=== PATIENT | male | born 1940 | race Caucasian/White ===

== ENCOUNTER 2021-06-28 17:59 | Inpatient (IN) ==
[2021-06-28] MEDS ORDERED: IOPAMIDOL 100 ML BOTTLE IV ONE (18:00)
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
[2021-06-28 18:35] LABS: POC Calcium, Ionized 1.17 (1.16-1.32); POC Creatinine 1.1 (0.6-1.2); POC Potassium 3.5 (3.3-5.1)
[2021-06-28 19:02] LABS: Basophils # (Auto) 0.04 K/mcL (0.00-0.30); Basophils % (Auto) 0.3 % (0.0-2.0); Eosinophils # (Auto) 0.03 K/mcL (0.00-0.70); Eosinophils % (Auto) 0.2 % (0.0-7.0); Hematocrit 43.5 % (40.1-51.0); Hemoglobin 14.5 g/dL (13.7-17.5); Lymphocytes # (Auto) 1.31 K/mcL (1.50-4.80); Lymphocytes % (Auto) 8.5 % (15.5-49.0); Mean Cell Volume 92.4 fL (80.0-100.0); Mean Corpuscular HGB Conc 33.3 g/dL (31.0-36.0); Mean Platelet Volume 10.1 fL (7.4-10.4); Monocytes # (Auto) 0.64 K/mcL (0.10-0.90); Monocytes % (Auto) 4.1 % (1.0-12.0); Neutrophils % (Auto) 86.9 % (38.0-78.0); Platelet Count 277 K/mcL (140-440); RBC 4.71 M/mcL (4.63-6.08); Red Cell Distribution Width 12.8 % (11.5-14.5); WBC 15.5 K/mcL (4.5-11.0)
[2021-06-28 19:39] LABS: ALT/SGPT 36 U/L (<40); AST/SGOT 24 U/L (<40); Albumin 4.7 gm/dL (3.2-5.2); Alkaline Phosphatase 48 U/L (39-117); Bilirubin,Direct < 0.2 mg/dL (0-0.3); Bilirubin,Total 0.3 mg/dL (0.1-1.0); Globulin 2.9 gm/dL (2.2-3.7)
[2021-06-28] MEDS ORDERED: MAGNESIUM CITRATE 300 ML ORAL.SOL PO ONE (21:00)
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
[2021-06-28] MEDS ORDERED: IBUPROFEN 600 MG TABLET PO PRN (22:29)
[2021-06-28] MEDS ORDERED: MINERAL OIL 1 DOSE ENEMA PR ONE (22:29)
[2021-06-28] MEDS ORDERED: ONDANSETRON 4 MG/2 ML VIAL IV PRN (22:29)
[2021-06-28] MEDS ORDERED: ACETAMINOPHEN 325 MG TABLET PO PRN (22:29)
[2021-06-28] MEDS: 0.9 % SODIUM CHLORIDE 1,000 ML IV SCH (22:45)
[2021-06-29] MEDS: 0.9 % SODIUM CHLORIDE 10 ML SYRINGE IV SCH ×4 (00:57→22:04)
--- NOTE | 2021-06-29 04:33 | Cat Scan Report ---
CLINICAL INFORMATION: Abdominal pain and distention COMPARISON: Abdomen and pelvic CT 06/10/2017 TECHNIQUE: Following enteric contrast, 80 cc of Isovue-[id number] were injected intravenously, and 60 seconds later, 0.625 mm helical slices were obtained from the mid heart through the subtrochanteric regions. Following reconstruction, 2.5 mm sagittal, coronal and axial reformatted images were processed and reviewed at bone, lung and soft tissue windows. Five minutes later, 0.625 mm helical slices were obtained from the mid heart through the kidneys and viewed at soft tissue windows.The exam was performed using radiation dose optimization techniques including, but not limited to, automated exposure control, adjustment of the mA and/or kV according to patient size and use of iterative reconstruction technique. FINDINGS: The lung bases show bibasilar subsegmental atelectasis.. No effusions. The visualized heart is mildly enlarged with calcification in the aortic valve. There is also scattered calcific plaque in the visualized coronary arteries. Abdominal images show mild fatty change within the liver which is stable. No focal hepatic lesion. A cluster of small stones layer dependently within the gallbladder. The gallbladder and bile ducts are, otherwise, normal: CBD is 5 mm. The pancreas, both adrenal glands and spleen are normal. The abdominal aorta is normal diameter with moderate fibrofatty calcific plaque. Aortic branches contain plaque, but no definite stenoses. There is a 2.9 mm nonobstructing stone in the inferior calyx of the right kidney. Small cysts seen within both kidneys. Pelvic images show urinary bladder is mildly distended. A faint 6 mm stone is present within the left urinary bladder base. Prostate and seminal vesicles are unremarkable. Extremely large amount of stool is present within the distal sigmoid and rectum with moderate stool seen throughout the remainder of the colon. The large bowel, appendix region, small bowel and stomach are otherwise grossly normal. Large (12 cm) right and moderate (9 cm) left inguinal hernia contain only mesenteric fat. Bone windows show only degeneration in the lumbar spine. IMPRESSION: 1. Moderate colonic stool with a very large amount of the distal sigmoid and rectum. 2. Cholelithiasis. Gallbladder and bile ducts are, otherwise, normal. 3. 6 mm stone in the left urinary bladder. 4. 2 mm nonobstructing stone inferior calyx right kidney. 5. Large right and moderate left inguinal hernias containing only mesenteric fat. Interpreted and Authenticated by: Azam Davis 06/29/21
[2021-06-29 06:17] LABS: Hematocrit 41.6 % (40.1-51.0); Hemoglobin 13.8 g/dL (13.7-17.5); Mean Corpuscular HGB Conc 33.2 g/dL (31.0-36.0); Mean Platelet Volume 10.2 fL (7.4-10.4); Platelet Count 268 K/mcL (140-440); RBC 4.57 M/mcL (4.63-6.08); Red Cell Distribution Width 12.9 % (11.5-14.5); WBC 12.6 K/mcL (4.5-11.0)
[2021-06-29 06:37] LABS: ALT/SGPT 30 U/L (<40); AST/SGOT 23 U/L (<40); Albumin 4.3 gm/dL (3.2-5.2); Albumin/Globulin Ratio 1.5 (1.0-2.3); Alkaline Phosphatase 44 U/L (39-117); Bilirubin,Direct < 0.2 mg/dL (0-0.3); Bilirubin,Total 0.4 mg/dL (0.1-1.0); Blood Urea Nitrogen 18 mg/dL (8-23); Carbon Dioxide 28 mmol/L (22-30); Chloride 97 mmol/L (96-108); Globulin 2.8 gm/dL (2.2-3.7); Glomerular Filtration Rate 71; Glucose 136 mg/dL (70-105); Lactate Dehydrogenase 152 U/L (135-225); Phosphorous 2.9 mg/dL (2.5-4.5); Triglycerides 251 mg/dL (<150); Uric Acid 6.8 mg/dL (2.5-8.0)
[2021-06-29 06:51] LABS: Band Neutrophils % 1 % (0-10); Lymphocytes % 21 % (15-49); Monocytes % (Manual) 9 % (1-12); Platelet Estimate NORMAL (Normal); RBC Morphology NORMAL (Normal); Segmented Neutrophils % 69 % (38-78)
[2021-06-29] MEDS ORDERED: POTASSIUM CHLORIDE 40 MEQ in DEXTROSE 5% IN WATER 500 ML IV ONE (08:00)
[2021-06-29] MEDS: SENNOSIDES 1 TABLET PO SCH ×2 (08:45→22:05)
[2021-06-29] MEDS: 0.9 % SODIUM CHLORIDE 1,000 ML IV SCH (08:46)
[2021-06-29] MEDS: LACTULOSE 20 GM/30 ML ORAL.SOL PO SCH ×4 (08:46→22:05)
--- NOTE | 2021-06-29 14:14 | XRay Report ---
CLINICAL INFORMATION: FOR F/U OF ILEUS COMPARISON: None. FINDINGS: Mild symmetric dilatation of the stomach small and large bowel with scattered air-fluid levels in the colon compatible with ileus appreciated. No free air, soft tissue mass or pathologic calcification. IMPRESSION: Moderate ileus with rectal stool impaction. Interpreted and Authenticated by: Azam Davis 06/29/21
[2021-06-29] MEDS: POLYETHYLENE GLYCOL 3350 17 GM PACKET PO SCH ×3 (15:16→23:56)
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
[2021-06-30] MEDS: 0.9 % SODIUM CHLORIDE 10 ML SYRINGE IV SCH ×2 (05:26→13:20)
[2021-06-30] MEDS: POLYETHYLENE GLYCOL 3350 17 GM PACKET PO SCH ×5 (05:26→20:18)
[2021-06-30 06:24] LABS: ALT/SGPT 29 U/L (<40); AST/SGOT 26 U/L (<40); Albumin 3.9 gm/dL (3.2-5.2); Albumin/Globulin Ratio 1.4 (1.0-2.3); Alkaline Phosphatase 39 U/L (39-117); Bilirubin,Direct < 0.2 mg/dL (0-0.3); Bilirubin,Total 0.4 mg/dL (0.1-1.0); Blood Urea Nitrogen 12 mg/dL (8-23); Calcium 9.6 mg/dL (8.6-10.4); Carbon Dioxide 28 mmol/L (22-30); Chloride 101 mmol/L (96-108); Globulin 2.7 gm/dL (2.2-3.7); Glomerular Filtration Rate 71; Glucose 101 mg/dL (70-105); Lactate Dehydrogenase 145 U/L (135-225); Phosphorous 2.7 mg/dL (2.5-4.5); Triglycerides 252 mg/dL (<150); Uric Acid 6.3 mg/dL (2.5-8.0)
[2021-06-30] MEDS: SENNOSIDES 1 TABLET PO SCH (09:16)
[2021-06-30] MEDS: LACTULOSE 20 GM/30 ML ORAL.SOL PO SCH ×4 (09:16→20:20)
--- NOTE | 2021-06-30 10:16 | Internal Med Progress Note ---
SUBJECTIVE Subjective Patient information: Note initiated : 06/30/21 at 10:13 am Service Date, if different from initiated Date: [] Patient: Bowen Snell 81 y/o M admitted on 06/28/21 for constipation. Chief Complaint: [] Interval history: Mr. Snell is a 81 year old male with a history of hypertension, hyperlipidemia, CAD s/p stents, normal pressure hydrocephalus, Parkinsonism, dementia, obesity, obstructive sleep apnea presented to the emergency department for constipation and was found to have fecal impaction. The ED doctor ordered a CT abdomen pelvis which reportedly showed large volume of stool in the rectal vault. There was an effort to disimpact the patient in the ED but only partially successful. Hospital medicine was consulted for admission. 06/30 Patient is pleasantly confused, vital stable. Abdominal x-ray findings consistent with ileus, admitted the patient to inpatient status. Discussed CODE STATUS with the patient's , she will review prior documentations and talk to other family members. General surgery following. Physical exam Head: Atraumatic, normal inspection. Eyes: normal appearance, no scleral icterus. Neck: full ROM Respiratory: no respiratory distress. Cardiovascular: normal rate and rhythm, S1, S2. GI/Abdominal: Distended, soft, mild diffuse tenderness to palpation, no guarding. Extremities: full range of motion, nontender. Neurological: CN II-XII intact, intact motor, intact sensation. Psychiatric: Impaired cognition Skin: warm, normal color Constitutional Vitals: Vital Signs Temp Pulse Resp BP Pulse Ox 98.3 F 60 16 118/66 92 06/30/21 07:13 06/30/21 04:00 06/30/21 07:13 06/30/21 07:13 06/30/21 07:13 Period Temp Pulse Resp BP Sys/Turner Pulse Ox Last 24 Hr 97.9 F-98.8 F 53-60 16-24 102-150/50-72 91-94 Intake and Output 06/29/21 06/30/21 06/30/21 21:59 05:59 13:59 Intake Total 795 Output Total 1 500 Balance 794 -500 Weight 101.423 kg Intake & Output: Intake & Output 06/29/21 06/30/21 06/30/21 21:59 05:59 13:59 Intake Total 795 Output Total 1 500 Balance 794 -500 Weight 101.423 kg Intake: IV 520 Potassium Chloride 40 Meq In 520 Dextrose 5% in Water 500 ml @ 130 mls/hr IV ONCE ONE Rx#: [id number] Oral 275 Output: Void Amount 500 # of times incontinent of urine 1 Other: Urine Appearance Clear Urine Color Pale Urine Odor Normal Stool Size Moderate Smear Stool Color Brown Brown Yellow Stool Consistency Soft Soft Liquid # Voids 1 # Bowel Movements 1 # of times incontinent of 1 Bowels OBJ DATA Labs CBC & Chem 7: 06/29/21 05:10 06/30/21 05:06 Labs: Abnormal Lab Results 06/30/21 06/29/21 06/29/21 05:06 05:10 05:10 WBC 12.6 H RBC 4.57 L Neut % (Auto) Lymph % (Auto) Lymph # (Auto) Absolute Neutrophils Potassium 3.0 L POC BUN Glucose 136 H POC Glucose Magnesium 2.7 H Triglycerides 252 H 251 H 06/28/21 06/28/21 18:32 18:26 WBC 15.5 H RBC Neut % (Auto) 86.9 H Lymph % (Auto) 8.5 L Lymph # (Auto) 1.31 L Absolute Neutrophils 13.43 H Potassium POC BUN 23 H Glucose POC Glucose 137 H Magnesium Triglycerides Meds: Medications Acetaminophen (Acetaminophen 325 Mg Tablet) 650 mg PO Q6HP PRN; Protocol PRN Reason: Per Pain Protocol/Fever > 101 Ibuprofen (Ibuprofen 600 Mg Tablet) 600 mg PO QIDP PRN; Protocol PRN Reason: Per Pain Protocol/Fever > 101 Lactulose (Lactulose 20 Gm/30 Ml Oral.Gabriela) 20 gm PO QID [facility] Last Admin: 06/30/21 09:16 Dose: 20 gm Documented by: Ondansetron HCl (Ondansetron 4 Mg/2 Ml Vial) 4 mg IV Q6HP PRN PRN Reason: Nausea And Vomiting Polyethylene Glycol (Polyethylene Glycol 3350 17 Gm Packet) 17 gm PO Q4H [facility] Stop: 06/30/21 12:01 Last Admin: 06/30/21 09:16 Dose: 17 gm Documented by: Senna (Sennosides 1 Tablet) 2 tab PO BID [facility] Last Admin: 06/30/21 09:16 Dose: 2 tab Documented by: Sodium Chloride (0.9 % Sodium Chloride 10 Ml Syringe) 10 ml IV Q8 [facility] Last Admin: 06/30/21 05:26 Dose: 10 ml Documented by: A/P Narrative A/P Narrative: Assessment: 81 year old male with a history of hypertension, hyperlipidemia, CAD s/p stents, normal pressure hydrocephalus, Parkinsonism, dementia, obesity, obstructive sleep apnea admitted for fecal impaction. #Ileus #Fecal impaction #Leukocytosis, stress induced #Coronary artery disease, stable #Hypertension #Hyperlipidemia #Normal pressure hydrocephalus #Parkinsonism #Dementia #Obstructive sleep apnea #Obesity Plan -Admit to inpatient. -Nonopioid analgesics. -IV fluid -Delirium precautions, avoid psychotropic medications. -Follow up pending x-ray abdomen. -Monitor CBC and chemistry panel. -General surgery following. -Home medication reconciliation, resume important meds. -CPAP at bedtime. -PT consult. -Diet per surgery. -DVT prophylaxis: Lovenox -Disposition: TBD Time Spent With Patient Time: Total time spent is greater than 50% in coordination of care (as documented) at patient's floor/unit and/or counseling patient: QUALITY VTE Deep Vein Thrombosis/Pulmonary Embolism Present on Admission: No
--- OUTSIDE RECORDS SUMMARY | 2021-06-30 10:17 | External Medical Summary | Continuity of Care Document ---
:1940 Author Organization [facility] Care Team Providers Name Role Phone DOD-VA Unavailable Unavailable Vital Signs Combined list of inpatient and outpatient Vital Signs from Department of Defense and Veterans Affairs, ranging from 12 months to all on record, depending upon the facility. Vital Sign Value Date Comments Source Ambulatory Phar ness Encounters Combined list of: 1) Encounters from Department of Veterans Affairs facilities going back up to the last 18 months, not all VA inpatient encounters are included; 2) Encounters from the Department of Defense facilities going back up to 280 months. Location Location Encounter Encounter Reason Attending ADM DC Stat us Disposition Source Details Type Number For Provider Date Date Visit History 03/09 03/09 One or More [facility] Facilit ies PST Outpatient [id number] 03/19 LINDSAY RICKEY Encounter [id number] Avel ROMAN [facility] Outpatient [id number] 04/09 LINDSAY RICKEY Encounter [id number] Avel ROMAN [facility] Outpatient [id number] 04/09 LINDSAY RICKEY Encounter [id number] Avel ROMAN [facility] Lifetime [id number] 03/18 Ambula t Pharmacy 943 /2021 ory Pharmac y Outpatient [id number] 04/30 LINDSAY RICKEY Encounter [id number] /2022 Avel ROMAN [facility] [id number] 04/30 04/30 687 Care 0975 /2021 [place] Outpatient avel morgan [facility] Outpatient [id number] 05/17 LINDSAY RICKEY Encounter [id number] Avel ROMAN [facility] [id number] 05/24 05/24 687 Care 9073 /2021 [place] Outpatient avel Roman malik arellano [facility] [id number] 06/03 06/03 Discharge 68 7 Care /2021 Disposition: [place] Outpatient Home or Self Wa lla Care Facilit y [facility] Procedures Combined list of: 1) Procedures from Department of Veterans Affairs facilities going backup to the last 18 months, not all [place] non-surgical procedures are included; 2) All procedures from the [facility] facilities. Procedure Procedure Type Code Date Perfomer Comments Sourc e No data available [facility] for this section Assessment and Plan Combined list of future care activities from Department of Defense and Veterans [facility] facilities (e.g., assessment and plan notes, appointments, orders, and referrals). Additional future care activities may be listed in the Plan of Care section. Result Assessment and Plan Date Source Assessment and Plan No data available for this 06/30/2021 A [facility] Pharmacy section Plan of Care List of future care activities from Department of Veterans Affairs facilities. Additional future care activities may be listed in the Assessment and Plan section. Date/Time Care Activity Care Activity Detail Facility 05/24/2021 Consult Order COMMUNITY CARE-PRIMARY CARE LINDSAY TRAN [facility] Cons Pulp Roller's Choice Functional Status Combined list of recent functional and cognitive assessments recorded at Department of Defense and Veterans Affairs (VA).VA Functional [place] Measurement (FIM) Scale: 1 = Total Assistance (Subject = 0% +), 2 = Maximal Assistance (Subject = 25% +), 3 = Moderate Assistance (Subject = 50% +), 4 = Mi nimal Assistance (Subject = 75% +), 5 = Supervision, 6 = Modified [place] (Device), 7 = Complete [place] (Timely, Safely). Assessment Source Assessment Type Assessment Assessment Assessmen t Date/Time Skill Score Details No data available for this section
--- OUTSIDE RECORDS SUMMARY | 2021-06-30 10:18 | External Medical Summary | Encounter Summary ---
:1940 Author Organization [facility] Address [address] [place] [address] Support Name Relationship Address Phone MAIKOL Unavailable [address] [phone] [place] [address] MAIKOL Unavailable [address] [place] [address] Insurance Providers: All historical and current Section Date Range: From patient's date of to the date document was created.This section includes the names of all active insurance providers for the patient. Insurance Type of Plan Start of End of Group Member Insurance Policy P atient's Provider Coverage Name Policy Policy Number ID Provider's Duran's Relationship Coverage Coverage Telephone Name to Policy Number Duran AARP MEDIGAP PLANF Mar 09, PLANF [id number] [phone] MAIKOL, PATIENT PLAN F 2013 [id number] [place] MED[place] MEDICARE PART Apr 09, PART A [id number] MAIKOL, PATIENT (WNR) (M) A [id number] [place] MEDICARE MEDICARE PART Apr 09, PART B [id number] MAIKOL, PATIENT (WNR) (M) B [id number] [place] MEDICARE PART Apr 09, PART A [id number] MAIKOL, PATIENT (WNR) (M) A [id number] [place] MEDICARE PART Apr 09, PART B [id number] MAIKOL, PATIENT (WNR) (M) B [id number] [place] Selected Encounter This section includes the information on record at [place] for the Encounter. Date/Time Encounter Type Encounter Description Reason Provider Source Apr 30, 2021 11:56 Outpatient Encounter TELEPHONE/ANCILLARY AM I[facility] Encounter Template Text not used by [place] Plan of Treatment: Future Appointments (+ 6 months) and Future Tests (+/- 45 days) The Plan of Treatment section includes future care activities for the patient from all [place] treatmentfacilities. This section includes future appointments and future orders which are active, pending orscheduled.Future Appointments This section includes appointments that were scheduled to occur 6 months from the date of the Encounter, up to a maximum of 20 appointments. The data comes from all [place] treatment facilities. Appointment Date/Time Appointment Type Appointment Facili ty Name Jun 03, 2021 02:30 PM AMBULATORY - NONE [facility] Active, Pending, and Scheduled Orders This section includes a listing of several types of active, pending, and scheduled orders, including clinic medications orders, diagnostic test orders, procedure orders and consult orders; where the start date of the order is 45 days before the date of the Encounter or 45 days after the date of the Encounter. The data comes from all [place] treatment facilities. Test Date/Time Test Type Test Details Facility Name Apr 30, 2021 12:23 PM Consult Order COMMUNITY CARE-AUDIOLOGY Roxana ORTEGA [facility]ge Worker's Choice [facility] May 24, 2021 01:56 PM Consult Order COMMUNITY CARE-PRIMARY MONICA ORTEGA [facility] [employer] Workers [facility] Choice Encounter Notes: All associated encounter notes This section contains the clinical notes associated to the Encounter. Date/Time Encounter Note(s) Provider Source Apr 30, 2021 12:24 PM LETTERS: MINDY LOMELI LOCAL TITLE: COMMUNITY CARE-REQUEST FOR SERVICE S (RFS) LETTER [facility] STANDARD TITLE: LETTERS DATE OF NOTE: APR 30, 2021@12:24 ENTRY DATE: APR 30, 2021@12:24:51 AUTHOR: MINDY LOMELI EXP COSIGNER: URGENCY: STATUS: COMPLETED [facility] REJI GALLARDO [address] [place] [id number] P: [id number] F: [phone] Dear Provider, [place] Information: Patient Name: OC LASSITER Date of : Apr The [facility], Office of Car e in the Community, has received your request for continuation of care. Upon review, the following determination has been made: Service has been APPROVED as of Apr. Details:A new community care referral has been s ubmitted for the requested care and will be processed through [place] [facility]. A NEW AUTHORIZATION PACKET WILL BE FAXED SEPARAT E FROM THIS LETTER. Should you have questions, please contact me at the number below. For questions on SEOCs/authorization paperwork, elba bruce contact . Sincerely, Mindy Administrative Medicine Service, RN Coordinator [phone], Ext [phone] Hedy Ortega [facility] Apr 30, 2021 11:56 AM LETTERS: MINDY LOMELI LOCAL TITLE: COMMUNITY CARE-REQUEST FOR SERVICE S (RFS) LETTER [facility] STANDARD TITLE: LETTERS DATE OF NOTE: APR 30, 2021@11:56 ENTRY DATE: APR 30, 2021@11:56:37 AUTHOR: MINDY LOMELI EXP COSIGNER: URGENCY: STATUS: COMPLETED s s s s s Dear Provider, [place] Information: Patient Name: OC LASSITER Date of : Apr The s has received the request from you for serv ices that were not originally authorized in the [facility] Administration for th is [place]. Upon review, the following determination has been made: Service has been approved. (Authorization #) Should you have questions, please contact us at s to speak with a patient financial services consultant. As a reminder, if applic able, return medical records within 30 days for routine services. Sincerely,
--- OUTSIDE RECORDS SUMMARY | 2021-06-30 10:18 | External Medical Summary | Encounter Summary ---
:1940 Author Organization [facility] Address [address] [place] [address] Support Name Relationship Address Phone MAIKOL Unavailable [address] [phone] [place] [address] MAIKOL Unavailable [address] [place] [address] Insurance Providers: All historical and current Section [...] Duran AARP MEDIGAP PLANF Mar 09, PLANF [id number] [phone] MAIKOL, PATIENT PLAN F 2013 [id number] [place] MEDICARE PART Apr 09, PART A [id number] MAIKOL, PATIENT (WNR) (M) A [id number] [place] MEDICARE PART Apr 09, PART B [id number] MAIKOL, PATIENT (WNR) (M) B [id number] [place]IC[place] PART Apr 09, PART A [id number] [phone] MAIKOL, PATIENT (WNR) (M) A [id number] [place] MEDICARE PART Apr 09, PART B [id number] [phone] MAIKOL, PATIENT (WNR) (M) B [id number] [place] Selected Encounter This section includes the information on record at [place] for the Encounter. Date/Time Encounter Type Encounter Description Reason Provider Source May 17, 2021 04:13 Outpatient Encounter COMMUNITY CARE PM CONSULT [facility] Encounter Template Text not used by [facility] Plan of Treatment: Future Appointments (+ 6 months) and Future Tests (+/- 45 days) The Plan of Treatment section includes future care activities for the patient from all [place] treatmentfacilities. This section includes future appointments and future orders which are active, pending orscheduled.Future Appointments This section includes appointments that were scheduled to occur 6 months from the date of the Encounter, up to a maximum of 20 appointments. The data comes from all [place] treatment facilities. Appointment Date/Time Appointment Type Appointment Facili ty Name Jun 03, 2021 02:30 PM AMBULATORY - NONE [facility] Active, Pending, and Scheduled Orders This section includes a listing of several types of active, pending, and scheduled orders, including clinic medications orders, diagnostic test orders, procedure orders and consult orders; where the start date of the order is 45 days before the date of the Encounter or 45 days after the date of the Encounter. The data comes from all [facility]. Test Date/Time Test Type Test Details Facility Name Apr 30, 2021 12:23 PM Consult Order COMMUNITY CARE-AUDIOLOGY Roxana TRAN [facility] Manager Unit's Choice [facility] May 24, 2021 01:56 PM Consult Order COMMUNITY CARE-PRIMARY [facility] Manager Units [facility] Choice Encounter Notes: All associated encounter notes This section contains the clinical notes associated to the Encounter. Date/Time Encounter Note(s) Provider Source May 17, 2021 04:13 PM ADMINISTRATIVE NOTE: FEMI MAYEN LOCAL TITLE: ADMINISTRATIVE NOTE [facility] STANDARD TITLE: ADMINISTRATIVE NOTE DATE OF NOTE: MAY 17, 2021@16:13 ENTRY DATE: MAY 17, 2021@16:13:47 AUTHOR: FEMI MAYEN EXP COSIGNER: URGENCY: STATUS: COMPLETED ADMINISTRATIVE NOTE Has ADDENDA Please contact and schedule per policy zaki TIWARI. Please contact at cell phone. /migdalia/ FEMI MAYEN [facility] ROUTEMAN Signed: 05/17/2021 16:14 Receipt Acknowledged By: 05/20/2021 17:20 /es/ Ethan WYNN [employer]ET METAL INSTALLER 05/21/2021 12:42 /es/ LY RODRIGUEZ ADVANCED SHEET METAL INSTALLER 05/21/2021 07:40 /es/ NOEL COLEMAN MSA 05/20/2021 ADDENDUM STATUS: COMPLETED Please contact for new patient scheduling. /es/ Ethan WYNN ADVANCED SHEET METAL INSTALLER Signed: 05/20/2021 17:19 Receipt Acknowledged By: 05/23/2021 17:48 /migdalia/ MEJIA SINGH 05/23/2021 ADDENDUM STATUS: COMPLETED would like [facility] to stay with current pro vider for services. /migdalia/ MEJIA SINGH Signed: 05/23/2021 17:50 Receipt Acknowledged By: 05/24/2021 12:52 /migdalia/ BERNICE MURRAY REFERRAL COORDINATION TEAM RN 05/24/2021 ADDENDUM STATUS: COMPLETED Call to r/t primary care in the communit y referral request. No answer, left discreet message to to return call to [phone] ext. [phone]. /migdalia/ BERNICE MURRAY REFERRAL COORDINATION TEAM RN Signed: 05/24/2021 12:54 05/24/2021 ADDENDUM STATUS: COMPLETED Call to r/t [facility] primary care referral r equest. Length of call: 15 min Verified by Full Name and . Verified demograp hics. Discussed with request for Primary Care Consult in community. [place] would like referral due to: carlos chance has established care in community and complex medical conditions. Discus sed Primary [facility] process and answered all questions. Verbalized agreement of process. [place] has scheduled appoin tment: Annual appt in January, routine scheduling. New [facility] primary care consult ordered and approved. /migdalia/ BERNICE MURRAY REFERRAL COORDINATION TEAM RN Signed: 05/24/2021 14:11
[2021-06-30] MEDS: LACTATED RINGERS 1,000 ML IV SCH (11:29)
--- NOTE | 2021-06-30 13:35 | General Surgery Progress Note ---
SUBJECTIVE Subjective Patient information: Note initiated : 06/30/21 at 1:34 pm Service Date, if different from initiated Date: [] Patient: Bowen Snell 81 y/o M admitted on 06/28/21 for constipation. Chief Complaint: [] Principal diagnosis: Severe constipation with fecal impaction Interval history: Patient continues to improve. He has had at least 7 bowel movements according to the document on record. His discomfort is significantly improved. Electrolytes are normal. Constitutional Vitals: Vital Signs Temp Pulse Resp BP Pulse Ox 97.6 F 57 L 16 130/81 93 06/30/21 11:11 06/30/21 11:11 06/30/21 11:11 06/30/21 11:11 06/30/21 11:11 Period Temp Pulse Resp BP Sys/Turner Pulse Ox Last 24 Hr 97.6 F-98.8 F 53-60 16-24 102-130/50-81 91-94 Intake and Output 06/29/21 06/30/21 06/30/21 21:59 05:59 13:59 Intake Total 795 240 Output Total 1 500 2 Balance 794 -500 238 Weight 223 lb 9.6 oz Intake & Output: Intake & Output 06/29/21 06/30/21 06/30/21 21:59 05:59 13:59 Intake Total 795 240 Output Total 1 500 2 Balance 794 -500 238 Weight 223 lb 9.6 oz Intake: IV 520 Potassium Chloride 40 Meq In 520 Dextrose 5% in Water 500 ml @ 130 mls/hr IV ONCE ONE Rx#: [id number] Oral 275 GI Tube Flush 240 Output: Void Amount 500 # of times incontinent of urine 1 2 Other: Urine Appearance Clear Urine Color Pale Urine Odor Normal Stool Size Moderate Smear Stool Color Brown Brown Yellow Stool Consistency Soft Liquid # Voids 1 # Bowel Movements 1 # of times incontinent of 1 3 Bowels Eye Eye exam: Present EOMI and PERRL Pupils: Present PERRL ENT ENT exam: Present normal exam and normal oropharynx Neck Neck exam: Present full ROM and normal inspection; Absent lymphadenopathy Respiratory Respiratory exam: Present normal respiratory exam and CTAB Cardiovascular Cardiovascular exam: Present normal rate and rhythm, RRR, +S1 and +S2; Absent JVD GI/Abdominal GI/Abdominal exam: Present normal bowel sounds and distended (Distention is significantly improved); Absent soft or mass Extremities Exam Extremities exam: Present full ROM and neurovascular intact; Absent tenderness Neurological Exam Neurological exam: Present alert, oriented X3 and reflexes normal; Absent motor sensory deficit Psychiatric Psychiatric exam: Present anxious and normal affect A/P Assessment and plan (1) Fecal impaction: Status: Acute (2) Hypertension: Status: Chronic Comment: Well-controlled on lisinopril 40 mg daily and hydrochlorothiazide 25 mg daily. Qualifiers: Hypertension type: essential hypertension Qualified Code(s): I10 - Essential (primary) hypertension (3) Obstructive sleep apnea: Status: Chronic Comment: On CPAP, but machine is giving an error message that the motor is breaking down We will send order for new CPAP machine (4) Hypertension, essential: Status: Chronic Comment: Stable at present (5) CAD (coronary artery disease): Status: Chronic Comment: Continue baby aspirin every other day. Discontinuing statin after discussion of risks and benefits in the setting of progressive cognitive impairment. Qualifiers: Coronary Disease-Associated Artery/Lesion type: [place] artery [place] vs. transplanted heart: [place] heart Associated angina: without angina Qualified Code(s): I25.10 - Atherosclerotic heart disease of [place] coronary artery without angina pectoris Plan Patient is doing well. MiraLAX will be continued tonight and he will get enemas till clear Colonoscopy in the morning Time Spent With Patient Time: Total time spent is greater than 50% in coordination of care (as documented) at patient's floor/unit and/or counseling patient:
--- NOTE | 2021-06-30 14:01 | XRay Report ---
CLINICAL INFORMATION: FOR F/U OF ILEUS COMPARISON: 06/29/2021 plain film and abdomen and pelvic CT 06/28/2021 FINDINGS: The colon is now mildly dilated with air-fluid levels. There is probable persistent impacted stool within the rectum. Stomach and small bowel remain normal. No free air. IMPRESSION: Partial distal colonic obstruction ostensibly due to impacted rectal stool. Interpreted and Authenticated by: Azam Davis 06/30/21
[2021-06-30] MEDS ORDERED: POLYETHYLENE GLYCOL 3350 17 GM PACKET PO SCH ×2 (16:00)
[2021-07-01] MEDS: LACTATED RINGERS 1,000 ML IV SCH (00:12)
[2021-07-01] MEDS: SENNOSIDES 1 TABLET PO SCH ×2 (00:12→08:53)
[2021-07-01] MEDS: POLYETHYLENE GLYCOL 3350 17 GM PACKET PO SCH ×2 (00:12→04:36)
[2021-07-01] MEDS: 0.9 % SODIUM CHLORIDE 10 ML SYRINGE IV SCH ×2 (00:12→05:59)
[2021-07-01 06:00] LABS: Basophils # (Auto) 0.05 K/mcL (0.00-0.30); Basophils % (Auto) 0.5 % (0.0-2.0); Eosinophils # (Auto) 0.24 K/mcL (0.00-0.70); Eosinophils % (Auto) 2.2 % (0.0-7.0); Hematocrit 39.9 % (40.1-51.0); Hemoglobin 13.3 g/dL (13.7-17.5); Lymphocytes # (Auto) 2.01 K/mcL (1.50-4.80); Lymphocytes % (Auto) 18.5 % (15.5-49.0); Mean Cell Volume 92.1 fL (80.0-100.0); Mean Corpuscular HGB Conc 33.3 g/dL (31.0-36.0); Monocytes # (Auto) 0.85 K/mcL (0.10-0.90); Monocytes % (Auto) 7.8 % (1.0-12.0); Platelet Count 229 K/mcL (140-440); RBC 4.33 M/mcL (4.63-6.08); Red Cell Distribution Width 12.6 % (11.5-14.5); WBC 10.8 K/mcL (4.5-11.0)
[2021-07-01 06:42] LABS: ALT/SGPT 30 U/L (<40); AST/SGOT 24 U/L (<40); Albumin 3.9 gm/dL (3.2-5.2); Albumin/Globulin Ratio 1.5 (1.0-2.3); Alkaline Phosphatase 40 U/L (39-117); Bilirubin,Direct < 0.2 mg/dL (0-0.3); Bilirubin,Total 0.4 mg/dL (0.1-1.0); Blood Urea Nitrogen 11 mg/dL (8-23); Calcium 9.4 mg/dL (8.6-10.4); Carbon Dioxide 28 mmol/L (22-30); Chloride 100 mmol/L (96-108); Globulin 2.6 gm/dL (2.2-3.7); Glomerular Filtration Rate 80; Glucose 103 mg/dL (70-105); Lactate Dehydrogenase 155 U/L (135-225); Phosphorous 2.6 mg/dL (2.5-4.5); Triglycerides 254 mg/dL (<150); Uric Acid 6.1 mg/dL (2.5-8.0)
[2021-07-01] MEDS ORDERED: PROPOFOL 200 MG/20 ML VIAL IV ONE (07:30)
--- NOTE | 2021-07-01 08:01 | Brief Operative Note ---
Brief Operative Note Date of procedure: 07/01/21 Pre-op diagnosis: Severe constipation with fecal impaction Post-op diagnosis: other (Severe constipation with fecal impaction; diverticulosis) Procedure: Colonoscopy to cecum Grafts/Implants: No Anesthesia: MAC Findings: Patient had left-sided diverticulosis but his colon was otherwise normal extending to the cecum; there was no left-sided areas of stenosis or stricture Complications: none Surgeon: Bowen Hilario Specimens Removed/Pathology: none sent Condition: stable Disposition: floor
[2021-07-01] MEDS: LACTULOSE 20 GM/30 ML ORAL.SOL PO SCH (08:53)
--- NOTE | 2021-07-01 09:03 | Discharge Summary ---
Discharge Provider Provider Patient information: Note initiated : 07/01/21 at 9:03 am Service Date, if different from initiated Date: [] Patient: Bowen Snell 81 y/o M admitted on 06/28/21 for constipation. Chief Complaint: [] Date of admission: 06/28/21 22:26 Discharge date: 07/01/21 Primary care physician: Azam Vazquez DO Consults: 06/28/21 Consult to Physician [CONS] Stat Comment: Consulting Provider: Pierre Cotter Reason For Exam: Physician to Consult Consult to Physician [CONS] Stat Comment: Consulting Provider: Bowen Hilario Reason For Exam: Physician to Consult Discharge Meds Discharge Medications Home Medications aspirin 81 mg tablet,delayed release (Adult Low Dose Aspirin) 81 mg PO HS tab 06/08/17 [History Confirmed 06/28/21 Last Taken Unknown] CPAP machine #1 ea 05/08/20 [Rx Confirmed 06/28/21 Last Taken Unknown] memantine 10 mg tablet 10 mg PO BID #180 tab 02/12/21 [Rx Confirmed 06/28/21 Last Taken Unknown] lisinopril 40 mg tablet 40 mg PO DAILY #90 tab 04/11/21 [Rx Confirmed 06/28/21 Last Taken Unknown] potassium chloride 10 mEq tablet,extended release 10 meq PO DAILY #90 tab 04/11/21 [Rx Confirmed 06/28/21 Last Taken Unknown] sertraline 50 mg tablet 50 mg PO QDAY #90 tab 04/11/21 [Rx Confirmed 06/28/21 Last Taken Unknown] COURSE Hospital Course Hospital course: Mr. Snell is a 81 year old male with a history of hypertension, hyperlipidemia, CAD s/p stents, normal pressure hydrocephalus, Parkinsonism, dementia, obesity, obstructive sleep apnea presented to the emergency department for constipation and was found to have fecal impaction. The ED doctor ordered a CT abdomen pelvis which reportedly showed large volume of stool in the rectal vault. There was an effort to disimpact the patient in the ED but only partially successful. Hospital medicine was consulted for admission. 06/30 Patient is pleasantly confused, vital stable. Abdominal x-ray impression by radiology is partial distal colonic obstruction ostensibly due to impacted rectal stool. Given likely stay greater than 2 midnights the patient was admitted to inpatient status. Potassium replacement for hypokalemia. Discussed CODE STATUS with the patient's , she will review prior documentations and talk to other family members. General surgery following. 07/01 GI performed a colonoscopy which showed left-sided diverticulosis but colon was otherwise normal extending to the cecum. General surgery okay with discharge, the patient was discharged to home. Held hydrochlorothiazide discharge as the patient was hypokalemic and hydrochlorothiazide can lead to volume depletion which could lead to increased fluid absorption from stool and resultant constipation. Resumed home lisinopril and other home medications at discharge. Discussed POLST form and provided documentation to the patient and his for review, these can be discussed further with primary care provider if there are questions. Follow-up with primary care provider after discharge. Physical exam Head: Atraumatic, normal inspection. Eyes: normal appearance, no scleral icterus. Neck: full ROM Respiratory: no respiratory distress. Cardiovascular: normal rate and rhythm, S1, S2. GI/Abdominal: soft, mild diffuse tenderness to palpation, no guarding. Extremities: full range of motion, nontender. Neurological: CN II-XII intact, intact motor, intact sensation. Psychiatric: Impaired cognition Skin: warm, normal color Discharge diagnosis: Rectal stool impaction Time Spent with Patient Time attestation: Total time spent providing and/or coordinating discharge services: EXAM Constitutional Vitals: Temp Pulse Resp BP Pulse Ox 98.1 F 52 L 16 132/78 94 07/01/21 08:43 07/01/21 08:43 07/01/21 08:43 07/01/21 08:43 07/01/21 08:43 Discharge Data Data Completed and Pending Labs on day of discharge: Labs from last 24 hours 07/01/21 07/01/21 05:24 05:24 WBC 10.8 RBC 4.33 L Hgb 13.3 L Hct 39.9 L MCV 92.1 MCH 30.7 MCHC 33.3 RDW 12.6 Plt Count 229 MPV 10.0 Neut % (Auto) 71.0 Lymph % (Auto) 18.5 [place] % (Auto) 7.8 Eos % (Auto) 2.2 Baso % (Auto) 0.5 Lymph # (Auto) 2.01 [place] # (Auto) 0.85 Eos # (Auto) 0.24 Baso # (Auto) 0.05 Absolute Neutrophils 7.69 Sodium 137 Potassium 3.5 Chloride 100 Carbon Dioxide 28 Anion Gap 9.0 BUN 11 Creatinine 0.9 GFR Calculation 80 Glucose 103 Uric Acid 6.1 Calcium 9.4 Phosphorus 2.6 Magnesium 2.2 Total Bilirubin 0.4 Direct Bilirubin < 0.2 GGT 32 AST 24 ALT 30 Alkaline Phosphatase 40 Lactate Dehydrogenase 155 Total Protein 6.5 Albumin 3.9 Globulin 2.6 Albumin/Globulin Ratio 1.5 Triglycerides 254 H Discharge Plan Patient/Caregiver Discharge Instructions Activity: increase activity as tolerated Diet: Regular Diet Instructions: Constipation (DC), Colonoscopy (DC) Activity Restrictions/Additional Instructions: Resume home diet as tolerated. Increase activity as tolerated. Return to ER for fever, chills, uncontrolled pain, inability to urinate or have a bowel movement, nausea and/or vomiting, swelling, redness, signs of infection, shortness of breath, chest pain, return of symptoms, or other acute symptom. This discharge packet is provided to you to help keep you informed about your care. We want to ensure you get everything you need when you go home. You will also be receiving a call from us in a few days to follow up with you and see how you are doing since your discharge. This gives us a chance to listen to any concerns you maybe experiencing since you were discharged or any additional nee ds you may have, as well as providing us feedback on your care experience. We strive to always provide excellent care and thank you for your feedback and for choosing [facility]. Prescriptions: Continued memantine 10 mg tablet 10 mg PO BID Qty: 180 3RF potassium chloride 10 mEq tablet extended release 10 meq PO DAILY Qty: 90 3RF sertraline 50 mg tablet 50 mg PO QDAY Qty: 90 3RF lisinopril 40 mg tablet 40 mg PO DAILY Qty: 90 3RF aspirin [Adult Low Dose Aspirin] 81 mg tablet,delayed release (DR/EC) 81 mg PO HS 0RF (DME) CPAP machine See Rx Instructions .Route .MEDSUPPLY Qty: 1 0RF Rx Instructions: Use nightly Discontinued hydrochlorothiazide 25 mg tablet 25 mg PO QDAY Qty: 90 3RF Follow Up Plan Follow up with: Azam Vazquez DO [Primary Care Provider] - 07/03/21 5:00 pm (Check-in at 4:45 pm) Patient Disposition: Home, Self-Care Overall status at discharge: patient is back to baseline Discharge Orders: Discharge Order (Routine); Ordered 07/01/21 Ordered By: Pierre NG VTE Deep Vein Thrombosis/Pulmonary Embolism Present on Admission: No
--- OUTSIDE RECORDS SUMMARY | 2021-07-01 11:07 | External Medical Summary | Continuity of Care Document ---
:1940 Author Organization [facility] Care Team Providers Name Role Phone DOD-VA [...] Date Date Visit History 03/09 03/09 [facility] PST Outpatient [id number] 03/19 LINDSAY RICKEY Encounter [id number] Avel ROMAN [facility] Outpatient [id number] 04/09 LINDSAY RICKEY Encounter [id number] Avel ROMAN [facility] Outpatient [id number] 04/09 LINDSAY RICKEY Encounter [id number] Avel ROMAN [facility] Lifetime [id number] 03/18 Ambula t Pharmacy 943 /2021 ory Pharmac y Outpatient [id number] 04/30 LINDSAY RICKEY Encounter [id number] /2022 Avel ROMAN [facility] [id number] 04/30 04/30 687 Care 0975 /2021 Jonatha Outpatient avel morgan Memmatthias [facility] Outpatient [id number] 05/17 LINDSAY RICKEY Encounter [id number] Avel ROMAN [facility] [id number] 05/24 05/24 687 Care 9073 /2021 Jonatha Outpatient avel Roman malik arellano [facility] [id number] 06/03 06/03 Discharge 68 7 Care /2021 Disposition: [place] Outpatient Home or Self Wa lla Care Facilit y Office of Communi [facility] Procedures Combined list of: 1) Procedures from Department of Veterans Affairs facilities going back up to the last 18 months, not all [place] non-surgical procedures are included; 2) All procedures from the Department of [facility] facilities. Procedure Procedure Type Code Date Perfomer Comments Sourc e No data available [facility] for this section Assessment and Plan Combined list of future care activities from Department of Defense and [facility] facilities (e.g., assessment and plan notes, appointments, orders, and referrals). Additional future care activities may be listed in the Plan of Care section. Result Assessment and Plan Date Source Assessment and Plan No data available for this 07/01/2021 A [facility] Pharmacy section Plan of Care List of future care activities from Department of Veterans Affairs facilities. Additional future care activities may be listed in the Assessment and Plan section. Date/Time Care Activity Care Activity Detail Facility 05/24/2021 Consult Order COMMUNITY CARE-PRIMARY CARE [facility]Y TRAN [facility] Cons Technical Support Manager's Choice Functional Status Combined list of recent functional and cognitive assessments recorded at Department of Defense and Veterans Affairs (VA).VA Functional Dennis Measurement (FIM) Scale: 1 = Total Assistance (Subject = 0% +), 2 = Maximal Assistance (Subject = 25% +), 3 = Moderate Assistance (Subject = 50% +), 4 = Mi nimal Assistance (Subject = 75% +), 5 = Supervision, 6 = Modified Dennis (Device), 7 = Complete Dennis (Timely, Safely). Assessment Source Assessment Type Assessment Assessment Assessmen t Date/Time Skill Score Details No data available for this section
--- NOTE | 2021-07-05 11:43 | Operative Note ---
DATE OF OPERATION: 07/01/2021 PREOPERATIVE DIAGNOSIS: Severe constipation with fecal impaction. POSTOPERATIVE DIAGNOSES: Severe constipation with fecal impaction; diverticulosis. PROCEDURE: Colonoscopy to cecum. SURGEON: Bowen Hilario M.D. FINDINGS: The patient had left-sided diverticulosis, but colon was otherwise normal, extending to the cecum. There was no area of stenosis or stricture on the left side. DESCRIPTION OF PROCEDURE: Under general anesthesia, the patient was turned to the left lateral decubitus position. Time-out procedure was carried out as per protocol. Digital examination of anus and rectum were normal. Scope was introduced and maneuvered to the cecum without difficulty. Cecum was identified by the opening of the appendix, ileocecal valve, the confluence of the taenia. Cecum was normal. The ascending colon revealed no abnormality. Descending and sigmoid colon showed wide mouth diverticula, but no other abnormality. There was no stricture or stenosis in the distal sigmoid or rectum. Retroflexed view of the rectum was normal. Procedure was terminated. The patient tolerated the procedure well. RECOMMENDATION: Routine followup screening colonoscopy as needed. LCS:stefano Job ID: [id number] Doc ID: [id number] Bowen Hilario M.D.
== END 2021-07-01 11:05 | disposition home or self-care (01) | DRG 389 ==
LOC: MEDSUR 17:59 → ED 17:59 → OBSVTOIN 22:26 → MEDSUR 22:33
PROVIDERS: ADMIT Internal Medicine; ATTEND Internal Medicine